=== PATIENT | female | born 1990 | race Two or more races ===

== ENCOUNTER 2017-08-11 18:37 | Emergency (ER) | payer SELFPAY ==
[~2017-08-11] VITALS: Ht 165.1 cm; Wt 70.8 kg
--- NOTE | 2017-08-11 18:50 | NUR ---
PT CAME IN FOR EPIGASTRIC PAIN, CHEST PAIN AND BACK PAIN WORSENING IN THE PAST 2 DAYS. AT FOR EVAL. PER PT SHE RECENTLY GAVE 20 DAYS AGO, . WAS RECENTLY HERE WELL FOR PANCREATITIS ALTHOUGH NOT ABLE TO GIVE FULL INFO. VSS. SAFETY AND COMFORT MEASURES PROVIDED. WILL MONITOR.
[2017-08-11] MEDS ORDERED: ONDANSETRON HCL/PF 4 MG/2 ML VIAL ONE (18:51)
[2017-08-11 18:54] LABS: BASOPHILS # (AUTO) 0.1 /CMM (0.0-0.2); BASOPHILS % (AUTO) 1.9 % (0.0-2.0); EOSINOPHILS # (AUTO) 0.4 /CMM (0.0-0.7); EOSINOPHILS % (AUTO) 5.2 % (0.0-6.0); HEMATOCRIT 38 % (33-45); HEMOGLOBIN 12.6 g/dL (11.5-14.8); LYMPHOCYTES % (AUTO) 44.7 % (20.0-44.0); MEAN CORPUSCULAR HEMOGLOBIN 29 PG (26.0-33.0); MEAN CORPUSCULAR HGB CONC 33 g/dl (31.0-36.0); MEAN CORPUSCULAR VOLUME 88 fL (82-100); MONOCYTES # (AUTO) 0.6 /CMM (0.1-1.30); MONOCYTES % (AUTO) 8.4 % (2.0-12.0); NEUTROPHILS # (AUTO) 2.7 /CMM (1.8-8.9); NEUTROPHILS % (AUTO) 39.8 % (43.0-81.0); PLATELET COUNT (AUTO) 390 /CMM (150-450); RDW COEFFICIENT OF VARIATION 13.4 (11.5-15.0); RED BLOOD CELL COUNT(AUTO) 4.31 MIL/uL (4.0-5.2); WHITE BLOOD COUNT (AUTO) 6.8 K/uL (4.3-11.0)
[2017-08-11] MEDS ORDERED: MORPHINE SULFATE INJ 2 MG/ML DISP.SYRIN IV ONE (19:00)
[2017-08-11] MEDS ORDERED: IV NS 0.9% 1,000 ML BAG IV ONE (19:00)
[2017-08-11] MEDS ORDERED: ONDANSETRON HCL/PF - ER 4 MG/2 ML VIAL IV ONE (19:00)
--- NOTE | 2017-08-11 19:00 | NUR ---
IV ACCESS STARTED. BLOOD DRAWN FOR LABS.
--- NOTE | 2017-08-11 19:05 | NUR ---
PT REPORT RECIVED FROM YANELIS LEO, PT ON MONITOR, ULTRASOUND AT BEDSIDE WILL CONTINUE TO MONITOR
[2017-08-11 19:10] LABS: CALCIUM, SERUM 8.5 mg/dL (8.5-10.1); CREATININE 1.1 mg/dL (0.6-1.3); POTASSIUM 4.4 mmol/L (3.5-5.1)
--- NOTE | 2017-08-11 19:11 | NUR ---
DAMIEN AT BS.
[2017-08-11 19:22] LABS: BILIRUBIN,TOTAL 0.3 mg/dL (0.2-1.0); TOTAL PROTEIN, SERUM 7.3 g/dL (6.4-8.2)
[2017-08-11 19:32] LABS: ALBUMIN 3.5 g/dL (3.4-5.0)
--- NOTE | 2017-08-11 19:44 | NUR ---
PT URINE OBTAINED AND SENT TO LAB
[2017-08-11 19:56] LABS: APPEARANCE,URINE Clear (CLEAR); BILIRUBIN,URINE Negative (NEGATIVE); BLOOD, URINE Trace-intact Ery/uL (NEGATIVE); COLOR,URINE Yellow (YELLOW); KETONES,URINE Negative (NEGATIVE); LEUKOCYTE ESTERASE ,URINE Trace (NEGATIVE); NITRITE, URINE Negative (NEGATIVE); PROTEIN,URINE Trace mg/dl (NEGATIVE); UGLUCOSE Negative (NEGATIVE); UROBILINOGEN,URINE 0.2 EU/dL (0.2)
--- NOTE | 2017-08-11 20:05 | NUR ---
PATIENTS MOTHER LEFT PHONE NUMBER
[2017-08-11 20:16] LABS: BACTERIA,URINE Few /HPF (None Seen); SQUAMOUS EPITHELIAL CELL,UR Few /HPF (None Seen)
--- NOTE | 2017-08-11 20:50 | NUR ---
Patient discharged to home in stable condition. Written and verbal after care instructions given. Patient verbalizes understanding of instruction. IV removed. Catheter intact and site benign. Pressure and 4x4 applied to site. No bleeding noted. Pt ambulatory with a steady gait. VSS, NAD noted on DC. Denies complaint on DC.
[2017-08-11 21:00] VITALS: BP 128/78
[2017-08-11] MEDS ORDERED: ONDANSETRON 4 MG TAB.RAPDIS ONE (21:07)
[2017-08-11] MEDS ORDERED: HYDROCODONE/APAP 5/325MG 1 EACH TABLET ONE (21:07)
--- NOTE | 2017-08-11 21:12 | NUR ---
PO NORCO AND ZOFRAN GIVEN TO PT PRIOR TO DISCHARGE. PT'S BOYFRIEND AT BEDSIDE STATES HE IS DRIVING PT HOME.
[2017-08-11] MEDS ORDERED: HYDROCODONE/APAP 5/325MG 1 EACH TABLET PO ONE (21:30)
[2017-08-11] MEDS ORDERED: ONDANSETRON 4 MG TAB.RAPDIS SL ONE (21:30)
== END 2017-08-11 21:13 | disposition home or self-care (01) ==
LOC: ER 18:42
DX: O26.63 Liver and biliary tract disorders in the puerperium (principal); K80.70 Calculus of gallbladder and bile duct without cholecystitis without obstruction; E86.0 Dehydration
CPT/HCPCS: 36415; 76705; 80048; 80076; 81001; 83690; 84703; 85025; 96361; 96374; 99285; A4606; J2405 ×2; Q0162; Z7610; 81000-TC

== ENCOUNTER 2025-03-23 05:43 | Emergency (ER) | payer MEDICAID, OTHER ==
[~2025-03-23] VITALS: Ht 154.9 cm; Wt 68.5 kg
[2025-03-23] MEDS: IV NS 0.9% 1,000 ML BAG IV ONE (06:27)
[2025-03-23 06:47] LABS: PLATELET COUNT (AUTO) 342 K/uL (150-450); RED BLOOD CELL COUNT(AUTO) 4.34 MIL/uL (4.0-5.2); RED CELL DISTRIBUTION WIDTH 14.0 % (11.5-15.0); WHITE BLOOD COUNT (AUTO) 10.3 K/uL (4.3-11.0)
[2025-03-23 06:57] LABS: CALCIUM, SERUM 9.5 mg/dL (8.5-10.1); CREATININE 0.7 mg/dL (0.6-1.3); SODIUM SERUM 139.0 mmol/L (136-145); UREA NITROGEN, BLOOD 11.0 mg/dL (7-18)
[2025-03-23 07:02] LABS: ASPARTATE AMINOTRANSFERASE 32.0 U/L (15-37); TOTAL PROTEIN, SERUM 7.7 g/dL (6.4-8.2)
[2025-03-23 07:08] LABS: APPEARANCE,URINE BLOODY (CLEAR)
[2025-03-23] MEDS ORDERED: MAG HYDROX/AL HYDROX/SIMETH 30 ML UDC ONE (07:10)
[2025-03-23] MEDS ORDERED: ONDANSETRON HCL/PF 4 MG/2 ML VIAL ONE (07:10)
[2025-03-23] MEDS ORDERED: LIDOCAINE VISCOUS 2% UD 15 ML UDC ONE (07:10)
[2025-03-23] MEDS ORDERED: FAMOTIDINE/PF INJ 20 MG/2 ML VIAL IV ONE (07:11)
[2025-03-23] MEDS: ONDANSETRON HCL/PF 4 MG/2 ML VIAL IVP ONE (07:12)
[2025-03-23] MEDS: LIDOCAINE VISCOUS 2% UD 15 ML UDC MM ONE (07:12)
[2025-03-23] MEDS: MAG HYDROX/AL HYDROX/SIMETH 30 ML UDC PO ONE (07:12)
[2025-03-23] MEDS: FAMOTIDINE/PF INJ 20 MG/2 ML VIAL IV ONE (07:12)
[2025-03-23 07:13] LABS: PREGNANCY TEST URINE QUAL NEGATIVE (NEGATIVE)
[2025-03-23] MEDS ORDERED: FAMO-131 PO (07:14)
[2025-03-23] MEDS ORDERED: PANT20TA2 PO (07:14)
[2025-03-23] MEDS ORDERED: ONDA4TAB5 PO (07:14)
[2025-03-23 07:38] LABS: SQUAMOUS EPITHELIAL CELL,UR Moderate /HPF (None Seen)
[2025-03-23 08:39] VITALS: BP 132/76; TEMP 98.6; O2SAT 99
== END 2025-03-23 08:39 | disposition home or self-care (01) ==
LOC: ER 05:47
DX: R10.84 Generalized abdominal pain (principal); R11.2 Nausea with vomiting, unspecified; G89.29 Other chronic pain; Z79.899 Other long term (current) drug therapy; Z90.49 Acquired absence of other specified parts of digestive tract
CPT/HCPCS: 99285; 74176; 96374; 76856; 96361; 96375; 85025; 80048; 83690; 80076; 84703; 81001; 36415; J1308; J2405; J7030